=== PATIENT | male | born 1985 | race Caucasian/White ===

== ENCOUNTER 2017-03-23 20:38 | Emergency (ER) | payer OTHER ==
[2017-03-23] MEDS ORDERED: POVIDONE IODINE 10 % 15 ML UD TOP ONE (20:53)
--- NOTE | 2017-03-23 20:55 | ED.PDOC ---
History of Present Illness - General Chief Complaint: Laceration Stated Complaint: right leg laceration Time Seen by Provider: 03/23/17 20:54 Source: patient Exam Limitations: no limitations - History of Present Illness Initial Comments: Claudy Cobb 31 y/o male stated doing DIY at home cutting tiles and sharp edge of broken tile got in contact with right leg causing skin laceration Timing/Duration: just prior to arrival Location: extremities - right leg Improving Factors: nothing Worsening Factors: nothing Associated Symptoms: denies symptoms Allergies/Adverse Reactions: Allergies NO KNOWN ALLERGY Allergy (Verified 03/23/17 20:58) Home Medications: Ambulatory Orders NK [NK] 03/23/17 Review of Systems - Review of Systems Skin: States: see HPI Neurological: States: no symptoms reported Past Medical History (General) - Patient Medical History Hx Asthma: No Hx Hypertension: No Hx Thyroid Disease: No Family Medical History - Family History Father Family History: No Known Mother Family History: Unknown Physical Exam - Physical Exam General Appearance: Alert, No apparent distress Eyes, Ears, Nose, Throat Exam: normal ENT inspection Neck: supple Cardiovascular/Chest: regular rate, rhythm, no murmur Respiratory: chest non-tender, lungs clear Gastrointestinal/Abdominal: non tender, soft Neurologic: no motor/sensory deficits, alert, normal mood/affect Skin Exam: warm/dry, normal color Skin Problem Location: lower extremities - right leg 2 cm laceration gaping bleeding lower leg right Progress - Progress Progress: 03/23/17 21:25 Vital Signs - 8 hr 03/23/17 20:50 Temperature 97.3 F L Pulse Rate [ 81 monitor] Respiratory 18 Rate Blood Pressure 136/76 [Left Arm] O2 Sat by Pulse 100 Oximetry - Results/Orders Results/Orders: Declined Td-wants to get it at [facility] advised to get it within 72 hours Procedures - Laceration/Wound Repair Right Ankle Wound Length (cm): 2 Wound's Depth, Shape: superficial Wound Explored: no foreign body removed Betadine Prep?: Yes Anesthesia: 1% Lidocaine Volume Anesthetic (cc's): 7 Wound Repaired With: sutures Suture Size/Type: 4:0, prolene Number of Sutures: 4 Layer Closure?: No Departure - Departure Clinical Impression: Laceration of leg not thigh, right Qualifiers: Encounter type: initial encounter Qualified Code(s): S81.811A - Laceration without foreign body, right lower leg, initial encounter Time of Disposition: 21:27 Disposition: Discharge to Home or Self Care Condition: Good Instructions: How to Care for a Laceration After Repair, DI for Laceration Repair Home Medications: Ambulatory Orders NK [NK] 03/23/17 Additional Instructions: REMOVAL OF SUTURES [facility]
[2017-03-23 20:58] VITALS: BP 136/76; TEMP 97.3; O2SAT 100
[2017-03-23] MEDS ORDERED: LIDOCAINE 1% 10 ML VIAL INJ ONE (20:58)
[2017-03-23] MEDS ORDERED: HYDROCOD/APAP 7.5/325 (ER DISP) #3 TAB PO ONE (21:28)
== END 2017-03-23 21:39 | disposition home or self-care (01) ==
LOC: ER 20:38
DX: S81.811A Laceration without foreign body, right lower leg, initial encounter (principal); W45.8XXA Other foreign body or object entering through skin, initial encounter; Y92.009 Unspecified place in unspecified non-institutional (private) residence as the place of occurrence of the external cause